=== PATIENT | female | born 1965 | race Caucasian/White ===

== ENCOUNTER 2016-08-08 21:17 | Emergency (ER) | payer OTHER ==
[~2016-08-08] VITALS: Ht 172.7 cm; Wt 69.5 kg
[~2016-08-08 21:17] MED LIST: ALPR-411 PO; CLX40 PO; OXYC7.5T78 PO; WLLSR/150 PO
[2016-08-08 21:19] VITALS: BP 121/69; PULSE 87; TEMP 36.7; O2SAT 98; Ht 172.7 cm; Wt 69.5 kg
[2016-08-08] MEDS ORDERED: CHN/1 PO (22:07)
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
== END 2016-08-08 23:00 | disposition home or self-care (01) ==
LOC: C.EDB 21:18 → C.EDD 23:00
DX: S13.4XXA Sprain of ligaments of cervical spine, initial encounter (principal); V43.52XA Car driver injured in collision with other type car in traffic accident, initial encounter; Z79.899 Other long term (current) drug therapy; Y92.488 Other paved roadways as the place of occurrence of the external cause; F17.210 Nicotine dependence, cigarettes, uncomplicated

== ENCOUNTER 2016-12-14 18:46 | Emergency (ER) | payer OTHER ==
[~2016-12-14] VITALS: Ht 172.7 cm; Wt 70.6 kg
[~2016-12-14 18:46] MED LIST changes: +CHN/1 PO; -OXYC7.5T78 PO
[2016-12-14 18:50] VITALS: TEMP 36.9; Ht 172.7 cm; Wt 70.6 kg
[2016-12-14] MEDS ORDERED: AMOXICILLIN/CLAVULANATE TAB 875 MG TAB PO STA (19:44)
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
[2016-12-14] MEDS ORDERED: DIPHTHERIA/TETANUS/PERTUSSIS 0.5 ML SYR/VIAL IM. ONE (19:45)
[2016-12-14] MEDS ORDERED: AMOX875T PO (20:15)
[2016-12-14 20:21] VITALS: BP 122/71; PULSE 68; O2SAT 98
== END 2016-12-14 20:21 | disposition home or self-care (01) ==
LOC: C.EDB 18:47 → C.EDD 20:21
DX: S41.151A Open bite of right upper arm, initial encounter (principal); S61.052A Open bite of left thumb without damage to nail, initial encounter; Z77.21 Contact with and (suspected) exposure to potentially hazardous body fluids; Z23 Encounter for immunization; F32.9 Major depressive disorder, single episode, unspecified; F41.9 Anxiety disorder, unspecified; Z79.899 Other long term (current) drug therapy; W50.3XXA Accidental bite by another person, initial encounter; Y93.F9 Activity, other caregiving; Y99.0 Civilian activity done for income or pay

== ENCOUNTER 2024-05-28 15:52 | Inpatient (IN) ==
[2024-05-28 16:23] LABS: Basophils # (auto) 0.04 K/uL (0.00-0.20); Basophils % (auto) 0.6 %; Eosinophils # (auto) 0.04 K/uL (0.00-0.50); Eosinophils % (auto) 0.6 %; Hematocrit (blood only) 35.2 % (37.0-47.0); Hemoglobin 11.8 g/dl (12.0-16.0); Immature Granulocytes # (auto) 0.02 K/uL (0.01-0.20); Immature Granulocytes % (auto) 0.3 %; Lymphocytes # (auto) 1.61 K/uL (1.20-3.40); Lymphocytes % (auto) 25.4 %; Mean Corpuscular Hemoglobin 29.7 pg (25.0-34.0); Mean Corpuscular Hgb Conc 33.5 g/dL (32.0-36.0); Mean Corpuscular Volume 88.7 fL (80.0-100.0); Mean Platelet Volume 10.9 fL (9.4-12.4); Monocytes # (auto) 0.46 K/uL (0.11-0.59); Monocytes % (auto) 7.3 %; Neutrophils # (auto) 4.17 K/uL (1.40-6.50); Neutrophils % (auto) 65.8 %; Platelet Count 212 K/uL (130-400); RDW Coefficient of Variation 11.9 % (11.5-14.5); RDW Standard Deviation 38.5 fL (36.4-46.3); Red Blood Count 3.97 M/uL (4.20-5.40); White Blood Count 6.34 K/ul (4.8-10.8)
--- NOTE | 2024-05-28 16:32 | Electrocardiogram Report ---
Test Reason : Blood Pressure : */* mmHG Vent. Rate : 72 BPM Atrial Rate : 72 BPM P-R Int : 110 ms QRS Dur : 74 ms QT Int : 398 ms P-R-T Axes : 0 52 26 degrees QTcB Int : 435 ms Sinus rhythm with short LA Diffuse Minor Nonspecific T wave abnormality Abnormal ECG When compared with ECG of 30-Nov-2013 15:54, No significant change Confirmed by Shai Escobar ([id number]) on 05/28/2024 4:31:59 PM Referred By: Confirmed By: Shai Escobar
[2024-05-28 16:40] LABS: Albumin Globulin Ratio 1.9 (0.9-2); Albumin Level 3.9 gm/dl (3.4-5.0); Bilirubin,Total 0.7 mg/dl (0.2-1.0); Calcium 8.7 mg/dl (8.6-10.3); Creatinine Clr Calc Pharmacy 82.9 ml/min; Globulin 2.1 gm/dl (2.5-4.0); Potassium 3.7 mmol/L (3.5-5.1)
[2024-05-28 16:46] LABS: Acetaminophen 5 ug/ml (10-30); Salicylate < 3.0 mg/dl (3.0-30)
[2024-05-28 16:54] LABS: Thyroid Stimulating Hormone 1.211 uIu/ml (0.300-4.500)
[2024-05-28 17:24] LABS: Appearance Urine Clear (Clear); Bilirubin Urine Negative (Negative); Blood Urine Negative (Negative); Color Urine Yellow; Glucose Urine UA Negative (Negative); Ketones Urine Negative (Negative); Leukocyte Esterase Urine Negative (Negative); Nitrite Urine Negative (Negative); Protein Urine Negative (Negative); Specific Gravity Urine 1.007 (1.000-1.030); Urobilinogen Urine Negative (Negative); pH Urine 5.5 (4.5-7.5)
[2024-05-28 18:14] LABS: Amphetamines+Metham, Urine Neg (Neg); Barbiturates, Urine Neg (Neg); Benzodiazepine, Urine Pos (Neg); Cocaine, Urine Neg (Neg); Fentanyl, Urine Neg (Neg); MDMA (Ecstacy), Urine Pos (Neg); Marijuana, Urine Neg (Neg); Methadone, Urine Neg (Neg); Opiate, Urine Neg (Neg); Phencyclidine, Urine Neg (Neg)
--- NOTE | 2024-05-28 21:57 | History & Physical Report ---
Date of Service May 28, 2024 Assessment & Plan (1) Suicide attempt by multiple drug overdose: (2) Depression with anxiety: (3) GERD (gastroesophageal reflux disease): (4) Hyperlipidemia: Plan 58yo female with depression/anxiety presenting with intentional overdose with multiple medications. Ingestion occurred between 14:00 and 15:15 today - ingestion as above with Ambien, Welbutrin, Rizatriptan, Bupropion and Alprazolam. Patient is somnolent but opens eyes to verbal stimuli. Protecting her airway. VSS. Electrolytes and labs are unremarkable. EKG with normal intervals. 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 History obtained through chart review and discussion with ER attending - patient unable to answer questions at time of admission, no family at bedside. Patient presenting with intentional overdose, suicide attempt that occurred between 14:00 and 15:30. She took 43 tablets of Xanax 0.25mg, 10 tablets of Rizatriptan 10mg, 15-30 tablets of Ambien 5mg and an unknown amount of Bupropion. She was found by her in bed, minimally responsive with a suicide note. In the ER patient afebrile, HD stable. Poison Control contacted and recommended continued monitoring ER Course: No therapies given Allergies Allergy/AdvReac Type Severity Reaction Status Date / Time bee venom protein (honey bee) Allergy Severe Anaphylaxis Verified 05/07/24 15:07 No Known Drug Allergies Allergy Verified 05/07/24 15:07 Home Medications Medication Instructions Recorded Confirmed Type rosuvastatin 10 mg tablet 10 mg PO QAM 05/29/23 05/28/24 History bupropion HCl 150 mg 24 hr tablet, 150 mg PO QAM #90 tabs 08/27/23 05/28/24 Rx extended release (Wellbutrin XL) tizanidine 2 mg capsule 2 mg PO Q8H PRN muscle spasticity 08/27/23 05/28/24 Rx #30 caps progesterone micronized 100 mg 100 mg PO HS 90 days #90 caps 09/25/23 05/28/24 Rx capsule buspirone 10 mg tablet 10 mg PO TID #270 tabs 11/29/23 05/28/24 Rx cholecalciferol (vitamin D3) 25 25 mcg PO QAM 02/07/24 05/28/24 History mcg (1,000 unit) tablet (Vitamin D3) coffee extract 100 mg-phosphatidyl 1 cap PO QAM 02/07/24 05/28/24 History serine 100 mg capsule (Neuriva Original) omeprazole 20 mg capsule,delayed 20 mg PO QAM 02/07/24 05/28/24 History release zolpidem 5 mg tablet 5 mg PO HS PRN Sleep #30 tabs 03/06/24 05/28/24 Rx triamcinolone acetonide 0.1 % 1 applic topical BID #15 grams 03/20/24 05/28/24 Rx topical ointment rizatriptan 10 mg tablet (Maxalt) See Rx Instructions PO .COMPLEX 05/07/24 05/28/24 Rx #10 tabs alprazolam 0.25 mg tablet 0.25 - 0.5 mg PO DAILY PRN anxiety 05/28/24 05/28/24 History citalopram 40 mg tablet 40 mg PO DAILY 05/28/24 05/28/24 History estradiol 0.0375 mg/24 hr weekly 1 patch transdermal WK 05/28/24 05/28/24 History transdermal patch Past Med/Surg History Problem List Suicide attempt by multiple drug overdose (Acute) Vasomotor symptoms due to menopause (Chronic) Chronic venous insufficiency (Chronic) Dyshidrotic eczema (Chronic) Gastroesophageal reflux disease (Chronic) Vitamin D deficiency (Chronic) Hyperlipidemia (Chronic) Depression with anxiety (Chronic) Medical History History of COVID-19 11/2023--fever, severe fatigue, cough--all resolved Vitamin D deficiency Hyperlipidemia GERD (gastroesophageal reflux disease) Depression with anxiety Chronic venous insufficiency Endometriosis Surgical History [place] teeth extracted History of colonoscopy History of ankle surgery ankle fracture> left S/P ablation operation for arrhythmia for SVT > 2008 H/O laparoscopy for endometriosis History of mandibular surgery S/P dilation and curettage Family History Aunt Breast cancer paternal aunt Mother Colorectal cancer Uterine cancer Grandmother (Maternal) Colorectal cancer Other No family history of adverse response to anesthesia Social History Smoking Status: Current every day smoker Tobacco Type: Cigarettes Age Started Using Tobacco: 31; packs per day: 0.5; Cigarettes Per Day: 6 a day (advised on policy); Second Hand Exposure: Yes; Do You Dip or Chew Tobacco: No; Hx Alcohol Use: Yes Alcohol type: wine Hx Substance Use: Yes Last Used Substance: Just Prior to Arrival Preferred Language: Ch[place] Communication Ability: Effective Visual Impairment: No Limitations Hearing Ability: Normal Fire Ranger Required: No Beliefs That Will Affect Care: None marital status: Current Living Situation: Spouse current occupational status: employed Other Information That Helps Us Care for You: No Feels Safe at Home: Yes Safety Concerns: Feels Safe At This Time Childhood Exposure to Second-Hand Smoke: Yes Diet: regular caffeine: Yes during the past year weight has: remained stable Dental Care, Regularly: Yes Physical Activity Frequency: 3-4 Times per Week Seatbelt Use: always Sunscreen Use: Yes Assistive Devices: Glasses Review of Systems Review of Systems: All systems reviewed & are unremarkable except as noted in HPI & below Physical Exam Physical Exam: General: Patient somnolent, minimally arousable, following simple commands and answers "yes and no" to questioning Skin: warm, dry, intact, no rashes or lesions HEENT: NC/AT, PERRL, anicteric sclera, conjunctiva without injection, external ear normal to inspection and nontender, nares patent, dry mucus membranes, dentition intact, no oropharyngeal lesions, neck supple, trachea midline, no LAD, no thyromegaly, no JVD Heart: +S1/S2, regular, tachycardic, no m/r/g Lungs: equal air entry bilaterally, no rales/rhonchi/wheezes Abd: +BS, soft, NT/ND, no masses/organomegaly/ascites Ext: warm, 2+ pulses in UE/LE bilaterally, no clubbing/cyanosis or edema. [place] catheter in place with clear, yellow urine in bag Neuro: somnolent, opens eyes to voice, answers some questions "yes and no" only, has episodes of minimal responsiveness with staring. Withdraws 4 extremities from pain Results & Data Results & Data Vital Signs (Past 12 Hours) Vital Signs Temp Pulse Resp BP Pulse Ox O2 Del Method 05/28/24 20:34 76 05/28/24 19:30 73 16 107/73 96 Room Air 05/28/24 19:09 72 15 96 Room Air 05/28/24 18:30 70 16 104/70 95 Room Air 05/28/24 18:00 70 16 106/69 95 Room Air 05/28/24 17:30 69 16 99/69 L 95 Room Air 05/28/24 17:15 68 16 97/70 L 95 Room Air 05/28/24 17:00 99/74 L 05/28/24 16:33 72 17 106/71 94 05/28/24 16:30 70 10 L 104/60 91 05/28/24 16:30 104/60 05/28/24 16:30 104/60 05/28/24 16:26 68 05/28/24 16:15 68 17 104/60 95 05/28/24 16:12 68 24 95 05/28/24 15:46 Room Air 05/28/24 15:46 36.4 C L 76 17 102/69 96 Room Air Laboratory Results Laboratory Results WBC 6.34 K/ul (4.8-10.8) 05/28/24 16:07 RBC 3.97 M/uL (4.20-5.40) L 05/28/24 16:07 Hgb 11.8 g/dl (12.0-16.0) L 05/28/24 16:07 Hct 35.2 % (37.0-47.0) L 05/28/24 16:07 MCV 88.7 fL (80.0-100.0) 05/28/24 16:07 MCH 29.7 pg (25.0-34.0) 05/28/24 16:07 MCHC 33.5 g/dL (32.0-36.0) 05/28/24 16:07 RDW Std Deviation 38.5 fL (36.4-46.3) 05/28/24 16:07 RDW Coeff of Courtney 11.9 % (11.5-14.5) 05/28/24 16:07 Plt Count 212 K/uL (130-400) 05/28/24 16:07 MPV 10.9 fL (9.4-12.4) 05/28/24 16:07 Immature Gran % (Auto) 0.3 % 05/28/24 16:07 Neut % (Auto) 65.8 % 05/28/24 16:07 Lymph % (Auto) 25.4 % 05/28/24 16:07 Wolfe % (Auto) 7.3 % 05/28/24 16:07 Eos % (Auto) 0.6 % 05/28/24 16:07 Baso % (Auto) 0.6 % 05/28/24 16:07 Neut # (Auto) 4.17 K/uL (1.40-6.50) 05/28/24 16:07 Lymph # (Auto) 1.61 K/uL (1.20-3.40) 05/28/24 16:07 Wolfe # (Auto) 0.46 K/uL (0.11-0.59) 05/28/24 16:07 Eos # (Auto) 0.04 K/uL (0.00-0.50) 05/28/24 16:07 Baso # (Auto) 0.04 K/uL (0.00-0.20) 05/28/24 16:07 Immature Gran # (Auto) 0.02 K/uL (0.01-0.20) 05/28/24 16:07 Sodium 142 mmol/L (136-145) 05/28/24 16:07 Potassium 3.7 mmol/L (3.5-5.1) 05/28/24 16:07 Chloride 111 mmol/L (98-107) H 05/28/24 16:07 Carbon Dioxide 25 mmol/L (21-32) 05/28/24 16:07 Anion Gap 6 (3-11) 05/28/24 16:07 BUN 12 mg/dl (6-23) 05/28/24 16:07 Creatinine 0.86 mg/dl (0.6-1.2) 05/28/24 16:07 Est Cr Clr Drug Dosing 82.9 ml/min 05/28/24 16:07 eGFR 78.75 05/28/24 16:07 BUN/Creatinine Ratio 14.0 (10-20) 05/28/24 16:07 Glucose 83 mg/dl (70-99(Fasting)) 05/28/24 16:07 POC Glucose 91 mg/dl (70-99) 05/28/24 16:05 Calcium 8.7 mg/dl (8.6-10.3) 05/28/24 16:07 Total Bilirubin 0.7 mg/dl (0.2-1.0) 05/28/24 16:07 AST 11 U/L (13-39) L 05/28/24 16:07 ALT 8 U/L (7-52) 05/28/24 16:07 Alkaline Phosphatase 64 U/L (34-104) 05/28/24 16:07 Total Creatine Kinase 46 U/L (26-192) 05/28/24 16:07 Total Protein 6.0 gm/dl (6.0-8.3) 05/28/24 16:07 Albumin 3.9 gm/dl (3.4-5.0) 05/28/24 16:07 Globulin 2.1 gm/dl (2.5-4.0) L 05/28/24 16:07 Albumin/Globulin Ratio 1.9 (0.9-2) 05/28/24 16:07 TSH 1.211 uIu/ml (0.300-4.500) 05/28/24 16:07 Urine Color Yellow 05/28/24 17:06 Urine Appearance Clear (Clear) 05/28/24 17:06 Urine pH 5.5 (4.5-7.5) 05/28/24 17:06 Ur Specific [place] 1.007 (1.000-1.030) 05/28/24 17:06 Urine Protein Negative (Negative) 05/28/24 17:06 Urine Glucose (UA) Negative (Negative) 05/28/24 17:06 Urine Ketones Negative (Negative) 05/28/24 17:06 Urine Blood Negative (Negative) 05/28/24 17:06 Urine Nitrite Negative (Negative) 05/28/24 17:06 Urine Bilirubin Negative (Negative) 05/28/24 17:06 Urine Urobilinogen Negative (Negative) 05/28/24 17:06 Ur Leukocyte Esterase Negative (Negative) 05/28/24 17:06 POC Ur Test NEG (NEG) 05/28/24 16:01 Salicylates < 3.0 mg/dl (3.0-30) L 05/28/24 16:07 Urine Opiates Screen Neg (Neg) 05/28/24 17:06 Ur Methadone, Qual Neg (Neg) 05/28/24 17:06 Urine Fentanyl Screen Neg (Neg) 05/28/24 17:06 Acetaminophen < 3 ug/ml (10-30) L 05/28/24 20:28 Urine Barbiturates Neg (Neg) 05/28/24 17:06 Ur Phencyclidine (PCP) Neg (Neg) 05/28/24 17:06 U Amphetamin/Meth Scrn Neg (Neg) 05/28/24 17:06 MDMA (Ecstasy) Screen Pos (Neg) H 05/28/24 17:06 U Benzodiazepines Scrn Pos (Neg) H 05/28/24 17:06 Ur Cocaine Metabolite Neg (Neg) 05/28/24 17:06 U Marijuana (THC) Screen Neg (Neg) 05/28/24 17:06 Ethyl Alcohol mg/dL < 10.0 mg/dl (<10.0) 05/28/24 16:07 ECG Additional Comments: DICTATED BY: Shai Escobar MD Test Reason : Blood Pressure : */* mmHG Vent. Rate : 72 BPM Atrial Rate : 72 BPM P-R Int : 110 ms QRS Dur : 74 ms QT Int : 398 ms P-R-T Axes : 0 52 26 degrees QTcB Int : 435 ms Sinus rhythm with short [place] Diffuse Minor Nonspecific T wave abnormality Abnormal ECG When compared with ECG of 30-Nov-2013 15:54, No significant change Confirmed by Shai Escobar ([id number]) on 05/28/2024 4:31:59 PM Referred By: Confirmed By: Shai Escobar Signed By: 05/28/24 1632 Dictated: 05/28/24 1600 Transcribed: Jump Roll Operator: The status of this report is Signed. Draft = Not yet reviewed or approved by Medical Physician. Signed = Reviewed and approved by Medical Physician. Code Status & VTE Plan VTE Prophylaxis Plan VTE Prophylaxis will be ordered: Yes PG Care Time/CCT Total # of Minutes Spent Total Time Spent with Patient: Total time spent is greater than 50% in coordination of care (as documented) at patient's floor/unit and/or counseling patient: Coding Level of Care Code 13566 INT INP/OBS CARE MIN Diagnoses Suicide attempt by multiple drug overdose T50.912A Encounter type: initial encounter Depression with anxiety F41.8 GERD (gastroesophageal reflux disease) K21.9 Hyperlipidemia E78.5 (1) Suicide attempt by multiple drug overdose Encounter type: initial encounter Qualified Code(s): T50.912A - Poisoning by multiple unspecified drugs, medicaments and biological substances, intentional self-harm, initial encounter
--- NOTE | 2024-05-28 22:13 | Emergency Department Note ---
History of Present Illness General Chief complaint: Overdose (Intentional) Stated complaint: OVERDOSE Time Seen by Provider: 05/28/24 16:00 Source: family () and EMS History of Present Illness Provider complaint: Overdose 58-year-old female presents emergency department for overdose. EMS reports that the patient took approximately 43 tablets of her 0.25 mg Xanax, 10 tablets of her 10 mg rizatriptan, 15 to 30 tablets of her 5 mg Ambien, and an unknown amount of bupropion under 50 mg. The bupropion was filled on February 23, 2024 for 90 tablets and is unclear if she took any or all of them. reports that the patient ingested these tablets between 2 and 3:15 PM. Patient's states he left the house at 2 PM and came back at 3:15 PM and found a suicide note in the patient's sleeping and minimally responsive in her bed. EMS reports that the patient is lethargic but does respond to noxious stimuli. No reported falls or trauma by EMS or the . Home Medications Medication Instructions Recorded Confirmed Type rosuvastatin 10 mg tablet 10 mg PO QAM 05/29/23 05/28/24 History bupropion HCl 150 mg 24 hr tablet, 150 mg PO QAM #90 tabs 08/27/23 05/28/24 Rx extended release (Wellbutrin XL) tizanidine 2 mg capsule 2 mg PO Q8H PRN muscle spasticity 08/27/23 05/28/24 Rx #30 caps progesterone micronized 100 mg 100 mg PO HS 90 days #90 caps 09/25/23 05/28/24 Rx capsule buspirone 10 mg tablet 10 mg PO TID #270 tabs 11/29/23 05/28/24 Rx cholecalciferol (vitamin D3) 25 25 mcg PO QAM 02/07/24 05/28/24 History mcg (1,000 unit) tablet (Vitamin D3) coffee extract 100 mg-phosphatidyl 1 cap PO QAM 02/07/24 05/28/24 History serine 100 mg capsule (Neuriva Original) omeprazole 20 mg capsule,delayed 20 mg PO QAM 02/07/24 05/28/24 History release zolpidem 5 mg tablet 5 mg PO HS PRN Sleep #30 tabs 03/06/24 05/28/24 Rx triamcinolone acetonide 0.1 % 1 applic topical BID #15 grams 03/20/24 05/28/24 Rx topical ointment rizatriptan 10 mg tablet (Maxalt) See Rx Instructions PO .COMPLEX 05/07/24 05/28/24 Rx #10 tabs alprazolam 0.25 mg tablet 0.25 - 0.5 mg PO DAILY PRN anxiety 05/28/24 05/28/24 History citalopram 40 mg tablet 40 mg PO DAILY 05/28/24 05/28/24 History estradiol 0.0375 mg/24 hr weekly 1 patch transdermal WK 05/28/24 05/28/24 History transdermal patch Allergies Allergy/AdvReac Type Severity Reaction Status Date / Time bee venom protein (honey bee) Allergy Severe Anaphylaxis Verified 05/07/24 15:07 No Known Drug Allergies Allergy Verified 05/07/24 15:07 Past Med/Surg History Problem List (Updated 05/28/24 @ 22:12 by Rich Mccormick MD) Suicide attempt by multiple drug overdose (Acute) Vasomotor symptoms due to menopause (Chronic) Chronic venous insufficiency (Chronic) Dyshidrotic eczema (Chronic) Gastroesophageal reflux disease (Chronic) Vitamin D deficiency (Chronic) Hyperlipidemia (Chronic) Depression with anxiety (Chronic) Medical History History of COVID-19 11/2023--fever, severe fatigue, cough--all resolved Vitamin D deficiency Hyperlipidemia GERD (gastroesophageal reflux disease) Depression with anxiety Chronic venous insufficiency Endometriosis Surgical History Trilla teeth extracted History of colonoscopy History of ankle surgery ankle fracture> left S/P ablation operation for arrhythmia for SVT > 2008 H/O laparoscopy for endometriosis History of mandibular surgery S/P dilation and curettage Family History Aunt Breast cancer paternal aunt Mother Colorectal cancer Uterine cancer Grandmother (Maternal) Colorectal cancer Other No family history of adverse response to anesthesia Social History Smoking Status: Unknown if ever smoked Tobacco Type: Cigarettes Age Started Using Tobacco: 31; packs per day: 0.5; Cigarettes Per Day: 6 a day (advised on policy); Second Hand Exposure: Yes; Do You Dip or Chew Tobacco: No; Hx Alcohol Use: Yes Alcohol type: wine Hx Substance Use: No Preferred Language: Romanian Communication Ability: Effective Visual Impairment: No Limitations Hearing Ability: Normal Roadmaster Required: No Beliefs That Will Affect Care: None marital status: Current Living Situation: Spouse current occupational status: employed Feels Safe at Home: Declines to Answer Childhood Exposure to Second-Hand Smoke: Yes Diet: regular caffeine: Yes during the past year weight has: remained stable Dental Care, Regularly: Yes Physical Activity Frequency: 3-4 Times per Week Seatbelt Use: always Sunscreen Use: Yes Assistive Devices: Glasses Physical Exam Vital Signs Vital Signs - 24 hr 05/28/24 15:46 05/28/24 15:46 05/28/24 16:12 Temperature 36.4 C L Temperature Source Oral Pulse Rate 76 68 Pulse Rate from SpO2 Sensor 68 Respiratory Rate 17 24 Blood Pressure 102/69 Blood Pressure Mean 80 Pulse Oximetry 96 95 Oxygen Delivery Method Room Air Room Air Sepsis Recent Fever Within 48 Hours No Sepsis New/Unexplained Change in Mental Status No Sepsis Action Taken by Nursing No Action Required 05/28/24 16:15 05/28/24 16:26 05/28/24 16:30 Temperature Temperature Source Pulse Rate 68 68 Pulse Rate from SpO2 Sensor 68 Respiratory Rate 17 Blood Pressure 104/60 104/60 Blood Pressure Mean 74 74 Pulse Oximetry 95 Oxygen Delivery Method Sepsis Recent Fever Within 48 Hours Sepsis New/Unexplained Change in Mental Status Sepsis Action Taken by Nursing 05/28/24 16:30 05/28/24 16:30 05/28/24 16:33 Temperature Temperature Source Pulse Rate 70 72 Pulse Rate from SpO2 Sensor 73 72 Respiratory Rate 10 L 17 Blood Pressure 104/60 104/60 106/71 Blood Pressure Mean 74 74 82 Pulse Oximetry 91 94 Oxygen Delivery Method Sepsis Recent Fever Within 48 Hours Sepsis New/Unexplained Change in Mental Status Sepsis Action Taken by Nursing 05/28/24 17:00 05/28/24 17:15 05/28/24 17:30 Temperature Temperature Source Pulse Rate 68 69 Pulse Rate from SpO2 Sensor 69 Respiratory Rate 16 16 Blood Pressure 99/74 L 97/70 L 99/69 L Blood Pressure Mean 80 77 79 Pulse Oximetry 95 95 Oxygen Delivery Method Room Air Room Air Sepsis Recent Fever Within 48 Hours Sepsis New/Unexplained Change in Mental Status Sepsis Action Taken by Nursing 05/28/24 18:00 05/28/24 18:30 05/28/24 19:09 Temperature Temperature Source Pulse Rate 70 70 72 Pulse Rate from SpO2 Sensor 69 72 Respiratory Rate 16 16 15 Blood Pressure 106/69 104/70 Blood Pressure Mean 82 81 Pulse Oximetry 95 95 96 Oxygen Delivery Method Room Air Room Air Room Air Sepsis Recent Fever Within 48 Hours Sepsis New/Unexplained Change in Mental Status Sepsis Action Taken by Nursing 05/28/24 19:30 05/28/24 20:34 Temperature Temperature Source Pulse Rate 73 76 Pulse Rate from SpO2 Sensor Respiratory Rate 16 Blood Pressure 107/73 Blood Pressure Mean 87 Pulse Oximetry 96 Oxygen Delivery Method Room Air Sepsis Recent Fever Within 48 Hours Sepsis New/Unexplained Change in Mental Status Sepsis Action Taken by Nursing Physical Exam GENERAL: Patient is somnolent however when spoken to loudly she does respond and speak in appropriate sentences. HENT: Exam performed. - Head: Normocephalic and atraumatic. EYES: Conjunctivae and EOM are normal. Right eye exhibits no discharge. Left eye exhibits no discharge. No scleral icterus. NECK: Normal range of motion. Neck supple. No JVD present. CV: Normal rate, regular rhythm, normal heart sounds and intact distal pulses. There is no peripheral edema. Palpable radial pulses bue. PULM/CHEST: Effort normal and breath sounds normal. No respiratory distress. No stridor. no wheezes. no rales. ABD: The abdomen is soft. There is no tenderness. NEURO: Patient is somnolent however when spoken to loudly she does respond and speak in appropriate sentences. GCS: 12 (E:3, V:4, M:5) Course Course 1600: The patient was evaluated in room A1. A complete history and physical exam was performed Cardiac monitoring: An order was placed for continuous cardiac monitoring. The monitor shows a rate of 70 with sinus rhythm interpreted by in 1629: Spoke with poison control Reji. They recommend 24 hours of observation, EKGs every 6 hours, and watch for seizures and QTc prolongation. 1655: Vital signs stable. Patient's acetaminophen level came back at 5. Given the patient's polypharmacy overdose it is unclear if the patient might of taking other medications containing acetaminophen or acetaminophen itself. We discussed with poison control Reji and we decided to repeat her Tylenol at 2000 and determine if the patient's Tylenol level goes up and will need NAC. 2114: Vital signs stable. Repeat acetaminophen level less than 3. EKG stable. [facility] Medical Decision Making Laboratory Data Attestation: I reviewed the patient's lab results. 05/28/24 16:07 05/28/24 16:07 Lab Results 05/28/24 05/28/24 05/28/24 Range/Units 16:01 16:05 16:07 WBC 6.34 (4.8-10.8) K/ul RBC 3.97 L (4.20-5.40) M/uL Hgb 11.8 L (12.0-16.0) g/dl Hct 35.2 L (37.0-47.0) % MCV 88.7 (80.0-100.0) fL MCH 29.7 (25.0-34.0) pg MCHC 33.5 (32.0-36.0) g/dL RDW Std Deviation 38.5 (36.4-46.3) fL RDW Coeff of Courtney 11.9 (11.5-14.5) % Plt Count 212 (130-400) K/uL MPV 10.9 (9.4-12.4) fL Immature Gran % (Auto) 0.3 % Neut % (Auto) 65.8 % Lymph % (Auto) 25.4 % [place] % (Auto) 7.3 % Eos % (Auto) 0.6 % Baso % (Auto) 0.6 % Neut # (Auto) 4.17 (1.40-6.50) K/uL Lymph # (Auto) 1.61 (1.20-3.40) K/uL [place] # (Auto) 0.46 (0.11-0.59) K/uL Eos # (Auto) 0.04 (0.00-0.50) K/uL Baso # (Auto) 0.04 (0.00-0.20) K/uL Immature Gran # (Auto) 0.02 (0.01-0.20) K/uL Sodium 142 (136-145) mmol/L Potassium 3.7 (3.5-5.1) mmol/L Chloride 111 H (98-107) mmol/L Carbon Dioxide 25 (21-32) mmol/L Anion Gap 6 (3-11) BUN 12 (6-23) mg/dl Creatinine 0.86 (0.6-1.2) mg/dl Est Cr Clr Drug Dosing 82.9 ml/min eGFR 78.75 BUN/Creatinine Ratio 14.0 (10-20) Glucose 83 (70-99(Fasting)) mg/dl POC Glucose 91 (70-99) mg/dl Calcium 8.7 (8.6-10.3) mg/dl Total Bilirubin 0.7 (0.2-1.0) mg/dl AST 11 L (13-39) U/L ALT 8 (7-52) U/L Alkaline Phosphatase 64 (34-104) U/L Total Creatine Kinase 46 (26-192) U/L Total Protein 6.0 (6.0-8.3) gm/dl Albumin 3.9 (3.4-5.0) gm/dl Globulin 2.1 L (2.5-4.0) gm/dl Albumin/Globulin Ratio 1.9 (0.9-2) TSH 1.211 (0.300-4.500) uIu/ml Urine Color Urine Appearance (Clear) Urine pH (4.5-7.5) Ur Specific [place] (1.000-1.030) Urine Protein (Negative) Urine Glucose (UA) (Negative) Urine Ketones (Negative) Urine Blood (Negative) Urine Nitrite (Negative) Urine Bilirubin (Negative) Urine Urobilinogen (Negative) Ur Leukocyte Esterase (Negative) POC Ur Test NEG (NEG) Salicylates < 3.0 L (3.0-30) mg/dl Urine Opiates Screen (Neg) Ur Methadone, Qual (Neg) Urine Fentanyl Screen (Neg) Acetaminophen 5 L (10-30) ug/ml Urine Barbiturates (Neg) Ur Phencyclidine (PCP) (Neg) U Amphetamin/Meth Scrn (Neg) MDMA (Ecstasy) Screen (Neg) U Benzodiazepines Scrn (Neg) Ur Cocaine Metabolite (Neg) U Marijuana (THC) Screen (Neg) Ethyl Alcohol mg/dL < 10.0 (<10.0) mg/dl 05/28/24 05/28/24 Range/Units 17:06 20:28 WBC (4.8-10.8) K/ul RBC (4.20-5.40) M/uL Hgb (12.0-16.0) g/dl Hct (37.0-47.0) % MCV (80.0-100.0) fL MCH (25.0-34.0) pg MCHC (32.0-36.0) g/dL RDW Std Deviation (36.4-46.3) fL RDW Coeff of [place]ney (11.5-14.5) % Plt Count (130-400) K/uL MPV (9.4-12.4) fL Immature Gran % (Auto) % Neut % (Auto) % Lymph % (Auto) % [place] % (Auto) % Eos % (Auto) % Baso % (Auto) % Neut # (Auto) (1.40-6.50) K/uL Lymph # (Auto) (1.20-3.40) K/uL [place] # (Auto) (0.11-0.59) K/uL Eos # (Auto) (0.00-0.50) K/uL Baso # (Auto) (0.00-0.20) K/uL Immature Gran # (Auto) (0.01-0.20) K/uL Sodium (136-145) mmol/L Potassium (3.5-5.1) mmol/L Chloride (98-107) mmol/L Carbon Dioxide (21-32) mmol/L Anion Gap (3-11) BUN (6-23) mg/dl Creatinine (0.6-1.2) mg/dl Est Cr Clr Drug Dosing ml/min eGFR BUN/Creatinine Ratio (10-20) Glucose (70-99(Fasting)) mg/dl POC Glucose (70-99) mg/dl Calcium (8.6-10.3) mg/dl Total Bilirubin (0.2-1.0) mg/dl AST (13-39) U/L ALT (7-52) U/L Alkaline Phosphatase (34-104) U/L Total Creatine Kinase (26-192) U/L Total Protein (6.0-8.3) gm/dl Albumin (3.4-5.0) gm/dl Globulin (2.5-4.0) gm/dl Albumin/Globulin Ratio (0.9-2) TSH (0.300-4.500) uIu/ml Urine Color Yellow Urine Appearance Clear (Clear) Urine pH 5.5 (4.5-7.5) Ur Specific [place] 1.007 (1.000-1.030) Urine Protein Negative (Negative) Urine Glucose (UA) Negative (Negative) Urine Ketones Negative (Negative) Urine Blood Negative (Negative) Urine Nitrite Negative (Negative) Urine Bilirubin Negative (Negative) Urine Urobilinogen Negative (Negative) Ur Leukocyte Esterase Negative (Negative) POC Ur Test (NEG) Salicylates (3.0-30) mg/dl Urine Opiates Screen Neg (Neg) Ur Methadone, Qual Neg (Neg) Urine Fentanyl Screen Neg (Neg) Acetaminophen < 3 L (10-30) ug/ml Urine Barbiturates Neg (Neg) Ur Phencyclidine (PCP) Neg (Neg) U Amphetamin/Meth Scrn Neg (Neg) MDMA (Ecstasy) Screen Pos H (Neg) U Benzodiazepines Scrn Pos H (Neg) Ur Cocaine Metabolite Neg (Neg) U Marijuana (THC) Screen Neg (Neg) Ethyl Alcohol mg/dL (<10.0) mg/dl ECG Data Attestation: I personally reviewed and interpreted this ECG as follows: Additional Comments: EKG #1 at 1599: Sinus rhythm with rate of 72. [place] 110 QRS [address] elevation or ST depression EKG #2 at 2033: Sinus rhythm with rate of 76. [place] 114 QRS [address] elevation or ST depression MDM Narrative 1600: The patient was evaluated in room A1. A complete history and physical exam was performed Cardiac monitoring: An order was placed for continuous cardiac monitoring. The monitor shows a rate of 70 with sinus rhythm interpreted by in 1629: Spoke with poison control Reji. They recommend 24 hours of observation, EKGs every 6 hours, and watch for seizures and QTc prolongation. 1654: Vital signs stable. Patient's acetaminophen level came back at 5. Given the patient's polypharmacy overdose it is unclear if the patient might of taking other medications containing acetaminophen or acetaminophen itself. We discussed with poison control Reji and we decided to repeat her Tylenol at 1999 and determine if the patient's Tylenol level goes up and will need NAC. 2114: Vital signs stable. Repeat acetaminophen level less than 3. EKG stable. [facility] Impression & Plan Suicide attempt by multiple drug overdose Discharge Plan Visit Data Chief Complaint: Overdose (Intentional) Stated Complaint: OVERDOSE ED Provider: Rich Mccormick Discharge Problem: Suicide attempt by multiple drug overdose Patient Disposition: Admitted As Inpatient Forms Stand Alone Forms: My [facility], Suicide Prevention Resources Prescriptions Prescriptions: No Action progesterone micronized 100 mg capsule 100 mg PO HS 90 Days Qty: 90 3RF buspirone 10 mg tablet 10 mg PO TID Qty: 270 1RF zolpidem 5 mg tablet 5 mg PO HS PRN (Reason: Sleep) Qty: 30 0RF bupropion HCl [Wellbutrin XL] 150 mg tablet extended release 24 hr 150 mg PO QAM Qty: 90 3RF tizanidine 2 mg capsule 2 mg PO Q8H PRN (Reason: muscle spasticity) Qty: 30 0RF rosuvastatin 10 mg tablet 10 mg PO QAM triamcinolone acetonide 0.1 % ointment 1 applic topical BID Qty: 15 1RF rizatriptan [Maxalt] 10 mg tablet See Rx Instructions PO .COMPLEX Qty: 10 3RF Rx Instructions: take 1 tab at onset of headache; if no relief may repeat 1 tab after at least 2 hrs; max = 3 tabs/24 hr PO omeprazole 20 mg capsule,delayed release(DR/EC) 20 mg PO QAM cholecalciferol (vitamin D3) [Vitamin D3] 25 mcg (1,000 unit) Tablet 25 mcg PO QAM Neuriva Original 100-100 mg Capsule 1 cap PO QAM citalopram 40 mg tablet 40 mg PO DAILY alprazolam 0.25 mg tablet 0.25 - 0.5 mg PO DAILY PRN (Reason: anxiety) Rx Instructions: 1-2 tabs PO daily PRN; estradiol 0.0375 mg/24 hr patch weekly 1 patch transdermal WK Patient Comments: takes on tuesdays Rx Instructions: 1 patch transdermally once weekly; Referrals Referrals: Leti Molina MD [Primary Care Provider] - Discharge Problem: Suicide attempt by multiple drug overdose Qualifiers: Encounter type: initial encounter Qualified Code(s): T50.912A - Poisoning by multiple unspecified drugs, medicaments and biological substances, intentional self-harm, initial encounter
[2024-05-28] MEDS ORDERED: ONDANSETRON INJ 2 MG/ML 2 ML VIAL IV PRN (23:24)
[2024-05-28] MEDS: LACTATED RINGER'S 1,000 ML IV SCH (23:36)
[2024-05-29 06:31] LABS: Hematocrit (blood only) 35.5 % (37.0-47.0); Hemoglobin 11.9 g/dl (12.0-16.0); Mean Corpuscular Hemoglobin 30.1 pg (25.0-34.0); Mean Corpuscular Hgb Conc 33.5 g/dL (32.0-36.0); Mean Corpuscular Volume 89.6 fL (80.0-100.0); Platelet Count 214 K/uL (130-400); RDW Standard Deviation 39.4 fL (36.4-46.3); Red Blood Count 3.96 M/uL (4.20-5.40); White Blood Count 7.99 K/ul (4.8-10.8)
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
[2024-05-29 07:01] LABS: BUN Creatinine Ratio 15.9 (10-20); Calcium 9.3 mg/dl (8.6-10.3); Creatinine Clr Calc Pharmacy 79.1 ml/min; Potassium 3.7 mmol/L (3.5-5.1)
[2024-05-29] MEDS: PANTOprazole 40 MG TAB PO SCH (08:13)
--- NOTE | 2024-05-29 11:23 | Electrocardiogram Report ---
Test Reason : Blood Pressure : */* mmHG Vent. Rate : 100 BPM Atrial Rate : 108 BPM P-R Int : * ms QRS Dur : 80 ms QT Int : 536 ms P-R-T Axes : * 62 65 degrees QTcB Int : 691 ms Poor data quality, interpretation may be adversely affected Sinus tachycardia Diffuse Minor Nonspecific T wave abnormality Abnormal ECG When compared with ECG of 28-May-2024 20:34, HR has increased by 24 bpm Otherwise no significant change Confirmed by Shai Escobar ([id number]) on 05/29/2024 11:22:50 AM Referred By: REFERRED SELF Confirmed By: Shai Escobar
--- NOTE | 2024-05-29 13:13 | Psychiatric Consultation ---
Date of Consultation May 29, 2024 Impression / Recommendations Sita Her is a 58 yo woman admitted medically following an intentional overdose suicide attempt. Diagnostically consistent with MDD in the context of recent stressors including recent reprimand at work. Acute risk of self-harm remains elevated and high given suicide attempt requiring medical admission, major depressive symptoms, history of prior attempt, access to lethal means, hopelessness, unwillingness to seek treatment, limited insight,, high psychic distress and regretful that she is alive. Given elevated risk of harm to self they meet criteria for inpatient psychiatric care for diagnostic clarification, safety/stabilization, development of additional coping skills, medication management and disposition/safety planning once medically stable. If they do not agree to voluntary treatment at that time they will meet criteria for 302 status based on severity of suicide attempt and ongoing modifiable risk factors. Overall, I spent a total of 60 minutes with this case including review of chart records, review of labwork, review of EKG QTc, direct evaluation of the patient at bedside, counseling the patient, discussion of the patient with the Nurse and with the hospitalist provider, discussion with the psychiatric liason during clinical rounds, review of collateral historian information from the family and documentation in the electronic health record. (1) Suicide attempt by multiple drug overdose: Encounter type: initial encounter Qualified Code(s): T50.912A - Poisoning by multiple unspecified drugs, medicaments and biological substances, intentional self-harm, initial encounter (2) Depression with suicidal ideation: Plan -Continue 1-on-1 for high risk of harm to self -Do not discharge or allow to leave AMA, would meet 302 criteria, if tries to leave call security and psych liason -Hold psych medications for now given overdose and prolonged QTc -Once medically cleared plan for psychiatric hospitalization (either 201 or 302 status). Psych History Identifying Data Taina is a 58 yo woman with a history of depression, anxiety, GERD, HLD presenting following suicide attempt via polypharmacy overdose. Psychiatry consulted for "intentional overdose". Chief Complaint "If I'd just had the right stuff I'd have done it and be done". History of Present Illness Taina was seen and assessed following a suicide attempt via polypharmacy overdose of multiple medications including Wellbutrin, Ambien, Xanax, and Celexa in the context of stressors including financial difficulties, and a recent incident at work, which exacerbated pre-existing suicidal ideation and planning over the last 2 months. She denies taking any migraine medication. She expresses feeling very discouraged that the attempt did not result in and currently experiences persistent suicidal thoughts and regret at being alive. She reports feeling hopeless and she left a suicide note which notes her sense that her will be better off without her, that he deserved better and with self-guilt about her past shopping habits and financial concerns. She has a history of depression and a prior suicide attempt in 2013. The patient's most recent psychiatric hospitalization was in 2013 at the [facility] following her previous suicide attempt via overdose. There are guns in the home. Further recent history and information per psych liason note on 05/29/2024: "Met with pt for initial consult. Consulted for S/P polypharmacy overdose. When this nurse entered pt room, pt was tremulous and crying on the phone with her . Her eyes remained closed throughout interview. Pt stated she's been feeling suicidal for approximately one month. She stated she did not have a specific plan prior to yesterday. She stated that while her was gone she thought, "this is a perfect opportunity. He'll be gone for a while. I couldn't find a rope so I took as many things as I could." She stated she took Xanax, Ambien, Wellbutrin and Celexa. She denies taking Rizatriptan. She stated she ran out of her prescription for that. Today she continues to feel suicidal and she is quite upset that her suicide attempt was unsuccessful. She stated "I'm so upset it didn't work. I'm such a dingbat. I didn't do it right. I'm taking up a medical bed here while someone else can be here." Current stressors include finances and she was recently reprimanded at [employer] and feels she will lose her job there. She has been employed there for approximately 4 years. 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 She stated, "It's been a rough month. Once I was reprimanded, that just sealed the deal." She reports a previous SA in 2013 by overdose in which she was hospitalized at the [facility]. She is tearful throughout interview and remains hopeless. She denies any [facility] Discussed inpatient psychiatric treatment. She stated she is willing to sign herself in voluntarily once she is medically cleared." Allergies Allergy/AdvReac Type Severity Reaction Status Date / Time bee venom protein (honey bee) Allergy Severe Anaphylaxis Verified 05/07/24 15:07 No Known Drug Allergies Allergy Verified 05/07/24 15:07 Home Medications Medication Instructions Recorded Confirmed Type rosuvastatin 10 mg tablet 10 mg PO QAM 05/29/23 05/28/24 History bupropion HCl 150 mg 24 hr tablet, 150 mg PO QAM #90 tabs 08/27/23 05/28/24 Rx extended release (Wellbutrin XL) tizanidine 2 mg capsule 2 mg PO Q8H PRN muscle spasticity 08/27/23 05/28/24 Rx #30 caps progesterone micronized 100 mg 100 mg PO HS 90 days #90 caps 09/25/23 05/28/24 Rx capsule buspirone 10 mg tablet 10 mg PO TID #270 tabs 11/29/23 05/28/24 Rx cholecalciferol (vitamin D3) 25 25 mcg PO QAM 02/07/24 05/28/24 History mcg (1,000 unit) tablet (Vitamin D3) coffee extract 100 mg-phosphatidyl 1 cap PO QAM 02/07/24 05/28/24 History serine 100 mg capsule (Neuriva Original) omeprazole 20 mg capsule,delayed 20 mg PO QAM 02/07/24 05/28/24 History release zolpidem 5 mg tablet 5 mg PO HS PRN Sleep #30 tabs 03/06/24 05/28/24 Rx triamcinolone acetonide 0.1 % 1 applic topical BID #15 grams 03/20/24 05/28/24 Rx topical ointment rizatriptan 10 mg tablet (Maxalt) See Rx Instructions PO .COMPLEX 05/07/24 Rx #10 tabs alprazolam 0.25 mg tablet 0.25 - 0.5 mg PO DAILY PRN anxiety 05/28/24 05/28/24 History citalopram 40 mg tablet 40 mg PO DAILY 05/28/24 05/28/24 History estradiol 0.0375 mg/24 hr weekly 1 patch transdermal WK 05/28/24 05/28/24 History transdermal patch Patient History Medical History History of COVID-19 11/2023--fever, severe fatigue, cough--all resolved Vitamin D deficiency Hyperlipidemia GERD (gastroesophageal reflux disease) Depression with anxiety Chronic venous insufficiency Endometriosis Surgical History [place] teeth extracted History of colonoscopy History of ankle surgery ankle fracture> left S/P ablation operation for arrhythmia for SVT > 2008 H/O laparoscopy for endometriosis History of mandibular surgery S/P dilation and curettage Family History Aunt Breast cancer paternal aunt Mother Colorectal cancer Uterine cancer Grandmother (Maternal) Colorectal cancer Other No family history of adverse response to anesthesia Social History Smoking Status: Current every day smoker Tobacco Type: Cigarettes Age Started Using Tobacco: 31; packs per day: 0.5; Cigarettes Per Day: 6 a day (advised on policy); Second Hand Exposure: Yes; Do You Dip or Chew Tobacco: No; Hx Alcohol Use: Yes Alcohol type: wine Hx Substance Use: Yes Last Used Substance: Just Prior to Arrival Preferred Language: [place] Communication Ability: Effective Visual Impairment: No Limitations Hearing Ability: Normal Advertising Columnist Required: No Beliefs That Will Affect Care: None marital status: Current Living Situation: Spouse current occupational status: employed Other Information That Helps Us Care for You: No Feels Safe at Home: Yes Safety Concerns: Feels Safe At This Time Childhood Exposure to Second-Hand Smoke: Yes Diet: regular caffeine: Yes during the past year weight has: remained stable Dental Care, Regularly: Yes Physical Activity Frequency: 3-4 Times per Week Seatbelt Use: always Sunscreen Use: Yes Assistive Devices: None Physical Exam Psychiatric: Thought Content: + hopelessness and + worthlessness Suicidal Thoughts: denies suicidal plan (but s/p serious attempt); + reports suicidal thoughts Vital Signs (Past 24 Hours): Last Vital Signs Temp 36.7 C 05/29/24 10:54 Pulse 61 05/29/24 10:54 Resp 20 05/29/24 10:54 BP 112/69 05/29/24 10:54 Pulse Ox 96 05/29/24 10:54 O2 Del Method Room Air 05/29/24 10:54 Results & Data (PSY) Medications Administered Lactated Ringer's (Lr) 1,000 mls @ 80 mls/hr IV .[id number] RICHIE Stop: 05/30/24 00:23 Last Admin: 05/29/24 12:07 Dose: 80 mls/hr Documented By: Infusion: 05/29/24 12:06 Dose: Infused Documented By: Admin: 05/28/24 23:36 Dose: 80 mls/hr Documented By: BRANDI Pantoprazole Sodium (Pantoprazole 40 Mg Tab) 40 mg PO DAILY RICHIE Stop: 06/28/24 08:59 Last Admin: 05/29/24 08:13 Dose: 40 mg Documented By: DONTA Coding Level of Care Code 18108 IN/OBS CONSULT LVL 4,60M Diagnoses Suicide attempt by multiple drug overdose T50.912A Encounter type: initial encounter Depression with suicidal ideation F32.A; R45.851
[2024-05-29] MEDS: MAGNESIUM SULFATE / D5W 1 GM/100 ML BAG IV SCH (14:33)
--- NOTE | 2024-05-29 16:26 | Electrocardiogram Report ---
Test Reason : Blood Pressure : */* mmHG Vent. Rate : 76 BPM Atrial Rate : 76 BPM P-R Int : 114 ms QRS Dur : 80 ms QT Int : 410 ms P-R-T Axes : 64 67 81 degrees QTcB Int : 461 ms Normal sinus rhythm Diffuse Minor Nonspecific T wave abnormality Abnormal ECG When compared with ECG of 28-May-2024 16:00, No significant change was found Confirmed by Shai Escobar ([id number]) on 05/29/2024 4:26:13 PM Referred By: REFERRED SELF Confirmed By: Shai Escobar
--- NOTE | 2024-05-29 17:04 | Electrocardiogram Report ---
Test Reason : Blood Pressure : */* mmHG Vent. Rate : 88 BPM Atrial Rate : 88 BPM P-R Int : 112 ms QRS Dur : 84 ms QT Int : 446 ms P-R-T Axes : 56 61 43 degrees QTcB Int : 539 ms Poor data quality, interpretation may be adversely affected Normal sinus rhythm with sinus arrhythmia Diffuse Nonspecific T wave abnormality Abnormal ECG When compared with ECG of 29-May-2024 08:11, No significant change Confirmed by Shai Escobar ([id number]) on 05/29/2024 5:03:59 PM Referred By: REFERRED SELF Confirmed By: Shai Escobar
--- NOTE | 2024-05-29 23:25 | Billing Data ---
Date of Service May 29, 2024 Coding Level of Care Code 21921 SUB INP/OBS CARE MIN
--- NOTE | 2024-05-30 07:01 | Hospitalist Progress Note ---
Date of Service May 30, 2024 Assessment & Plan (1) Suicide attempt by multiple drug overdose: (2) Depression with anxiety: (3) GERD (gastroesophageal reflux disease): (4) Hyperlipidemia: Plan 58yo female with depression/anxiety presenting with intentional overdose with multiple medications including with Ambien, Wellbutrin, citalopram and Alprazolam. 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 - Alprazolam, Wellbutrin, Buspirone, Citalopram -Psychiatry consultation appreciated #Prolonged QTc - initially noted on presentation, now less than 500-> likely secondary to SSRI ingestion - consider repeating EKG prior to starting any QT prolonging medications #GERD - chronic, stable -Protonix 40mg po daily while inpatient #Hyperlipidemia -Continue Crestor Ppx - Low risk for DVT-> ambulation Code - Full Dispo - Medically stable for inpatient psych placement; -Do not discharge or allow to leave AMA, would meet 302 criteria Admission and Anticipated Discharge Date Admission Date: May 28, 2024 Supervising Physician Co-Signing Physician Notes During face to face encounter, I obtained a history of current complaints and a physical examination, discussed hospital stay with patient. I discussed plan of care with PGY3 Dr. Vinson. I reviewed above note and agree with it except for the following: Patient here with intentional overdose. Discussed with psych. Patient cannot sign out against medical advice. Patient is back to baseline regardining mentation and vital signs. Patient is medically cleared for discharge. will continue 1-1 observation. Vitals appear stable. Subjective Pt seen at bedside this morning. No events overnight. Complaining of headache, otherwise no complaints this morning. Review of Systems Review of Systems: As per above Physical Exam Physical Exam: Constitutional: well-appearing, no acute distress HEENT: NCAT, no conjunctival injection CV: regular rhythm, no murmur appreciated, extremities well-perfused, no LE edema Resp: CTABL, no wheezes/rales/rhonchi appreciated, no increased work of breathi ng MSK: no gross deformities appreciated Skin: warm, dry, no rash appreciated Neuro: alert, oriented, no focal neurologic deficit appreciated Results & Data Results & Data Vital Signs (Past 12 Hours) Vital Signs Temp Pulse Pulse Resp BP BP Pulse Ox 05/30/24 03:51 36.5 C 70 14 122/72 98 05/29/24 23:16 36.6 C 75 14 96/60 L 97 05/29/24 23:00 67 05/29/24 19:17 36.7 C 71 16 110/70 97 O2 Del Method 05/30/24 03:51 Room Air 05/29/24 23:16 Room Air 05/29/24 23:00 05/29/24 19:17 Room Air Resident Activity Tracking Resident Involvement: Resident Care Provided Care Provided: Adult Hospital Medicine (1) Suicide attempt by multiple drug overdose Encounter type: initial encounter Qualified Code(s): T50.912A - Poisoning by multiple unspecified drugs, medicaments and biological substances, intentional self-harm, initial encounter
[2024-05-30 07:26] LABS: Hematocrit (blood only) 35.2 % (37.0-47.0); Mean Corpuscular Hemoglobin 30.3 pg (25.0-34.0); Mean Corpuscular Hgb Conc 34.1 g/dL (32.0-36.0); Mean Corpuscular Volume 88.9 fL (80.0-100.0); Mean Platelet Volume 11.2 fL (9.4-12.4); Platelet Count 214 K/uL (130-400); RDW Coefficient of Variation 12.1 % (11.5-14.5); RDW Standard Deviation 39.4 fL (36.4-46.3); Red Blood Count 3.96 M/uL (4.20-5.40)
[2024-05-30 07:48] LABS: Albumin Globulin Ratio 1.9 (0.9-2); Albumin Level 3.9 gm/dl (3.4-5.0); BUN Creatinine Ratio 9.4 (10-20); Bilirubin,Total 0.6 mg/dl (0.2-1.0); Calcium 9.1 mg/dl (8.6-10.3); Creatinine Clr Calc Pharmacy 76.3 ml/min; Globulin 2.1 gm/dl (2.5-4.0); Magnesium 2.2 mg/dl (1.7-2.4); Potassium 3.8 mmol/L (3.5-5.1)
[2024-05-30] MEDS: ACETAMINOPHEN 325 MG TAB PO PRN (09:23)
--- NOTE | 2024-05-30 13:52 | Psychiatric Progress Note ---
Date of Service May 30, 2024 Impression / Recommendations Impression Taina is a 58 yo woman admitted medically following an intentional overdose suicide attempt. Diagnostically consistent with MDD in the context of recent stressors including recent reprimand at work. Acute risk of self-harm remains elevated and high given suicide attempt requiring medical admission, major depressive symptoms, history of prior attempt, access to lethal means, hopelessness, unwillingness to seek treatment, limited insight,, high psychic distress and regretful that she is alive. Given elevated risk of harm to self they meet criteria for inpatient psychiatric care for diagnostic clarification, safety/stabilization, development of additional coping skills, medication management and disposition/safety planning once medically stable. A: Patient presents as a high suicide risk and cannot contract for safety if discharged. Patient meets criteria for inpatient psychiatry admission and is agreeable. Psychiatry liaison completed 201 commitment paperwork and will conduct bed search. Overall, I spent a total of 30 minutes with this case including review of chart records, review of labwork, review of EKG QTc, direct evaluation of the patient at bedside, counseling the patient, discussion of the patient with the Nurse and with the hospitalist provider, discussion with the psychiatric liason during clinical rounds, review of collateral historian information from the family and documentation in the electronic health record. (1) Suicide attempt by multiple drug overdose: (2) Depression with suicidal ideation: Plan -Continue 1-on-1 for high risk of harm to self -Do not discharge or allow to leave AMA, would meet 302 criteria, if tries to leave call security and psych liaison -Hold psych medications for now given overdose and prolonged QTc -Continue plan for voluntary admission to inpatient psychiatry (201) Suicide Risk Level Suicide Risk Level: High-Imminent (1-on-1 observation) Interval History Identifying Information Taina is a 58 yo woman admitted medically following an intentional overdose suicide attempt. Chief Complaint Depression Subjective Subjective The pt reports feeling depressed and is tearful. Physically feels better however c/o continued negative thinking. C/o low energy and inability to concentration. Word finding difficulties during interview. Denies AVH. C/o on-going desire to and passive wish. When reflect on recent suicide attempt she reports "I didn't do it right" and appears disappointed. Agreeable to inpatient psychiat ry admission. Physical Exam Mental Examination Appearance: Disheveled Eye Contact: No Eye Contact Motor Behavior: Slowed and Tremulous Speech: Soft and Delayed Mood: Sad and Tearful Affect: Congruent, Sad and Withdrawn Thought Process: Intact and Linear Thought Content: Intact and Racing Hallucinations: None Insight: Poor (to limited) Judgement: Poor Vital Signs (Past 24 Hours) Last Vital Signs Temp 36.5 C 05/30/24 11:33 Pulse 74 05/30/24 11:33 Resp 20 05/30/24 11:33 BP 111/72 05/30/24 11:33 Pulse Ox 94 05/30/24 11:33 O2 Del Method Room Air 05/30/24 11:33 Results & Data ([facility]) Laboratory Results Laboratory Results - last 24 hr 05/30/24 06:44 WBC 7.30 RBC 3.96 L Hgb 12.0 Hct 35.2 L MCV 88.9 MCH 30.3 MCHC 34.1 RDW Std Deviation 39.4 RDW Coeff of Courtney 12.1 Plt Count 214 MPV 11.2 Sodium 142 Potassium 3.8 Chloride 110 H Carbon Dioxide 28 Anion Gap 4 BUN 8 Creatinine 0.85 Est Cr Clr Drug Dosing 76.3 eGFR 79.86 BUN/Creatinine Ratio 9.4 L Glucose 100 H Calcium 9.1 Magnesium 2.2 Total Bilirubin 0.6 AST 10 L ALT 7 Alkaline Phosphatase 61 Total Protein 6.0 Albumin 3.9 Globulin 2.1 L Albumin/Globulin Ratio 1.9 Current Inpatient Medications Current Inpatient Medications: Current Inpatient Medications Acetaminophen (Acetaminophen 325 Mg Tab) 650 mg PO Q4H PRN PRN Reason: Pain Stop: 06/29/24 08:30 Last Admin: 05/30/24 09:23 Dose: 650 mg Ondansetron HCl (Ondansetron Inj 2 Mg/Ml 2 Ml Vial) 4 mg IV Q6H PRN PRN Reason: Nausea And Vomiting Stop: 06/27/24 23:23 Pantoprazole Sodium (Pantoprazole 40 Mg Tab) 40 mg PO DAILY RICHIE Stop: 06/28/24 08:59 Last Admin: 05/30/24 09:23 Dose: 40 mg (1) Suicide attempt by multiple drug overdose Encounter type: initial encounter Qualified Code(s): T50.912A - Poisoning by multiple unspecified drugs, medicaments and biological substances, intentional self-harm, initial encounter
--- NOTE | 2024-05-30 16:44 | Electrocardiogram Report ---
Test Reason : Blood Pressure : */* mmHG Vent. Rate : 77 BPM Atrial Rate : 77 BPM P-R Int : 116 ms QRS Dur : 80 ms QT Int : 428 ms P-R-T Axes : 61 64 39 degrees QTcB Int : 484 ms Normal sinus rhythm Nonspecific T wave abnormality Prolonged QT Abnormal ECG When compared with ECG of 29-May-2024 13:14, No significant change Confirmed by Jesse Marie ([id number]) on 05/30/2024 4:44:00 PM Referred By: REFERRED SELF Confirmed By: Jesse Marie
--- NOTE | 2024-05-30 16:45 | Electrocardiogram Report ---
Test Reason : Blood Pressure : */* mmHG Vent. Rate : 72 BPM Atrial Rate : 72 BPM P-R Int : 92 ms QRS Dur : 78 ms QT Int : 452 ms P-R-T Axes : 27 66 42 degrees QTcB Int : 495 ms Sinus rhythm with short NV Nonspecific T wave abnormality Prolonged QT Abnormal ECG When compared with ECG of 29-May-2024 20:52, No significant change Confirmed by Jesse Marie ([id number]) on 05/30/2024 4:44:52 PM Referred By: REFERRED SELF Confirmed By: Jesse Marie
--- NOTE | 2024-05-30 22:26 | Billing Data ---
Date of Service May 30, 2024 Coding Level of Care Code 76054 SUB INP/OBS CARE MIN
--- NOTE | 2024-05-30 22:30 | Electrocardiogram Report ---
Test Reason : Blood Pressure : */* mmHG Vent. Rate : 72 BPM Atrial Rate : 72 BPM P-R Int : 112 ms QRS Dur : 84 ms QT Int : 448 ms P-R-T Axes : 0 75 68 degrees QTcB Int : 490 ms Normal sinus rhythm Nonspecific T wave abnormality Prolonged QT Abnormal ECG When compared with ECG of 30-May-2024 01:34, No significant change Confirmed by Jesse Marie ([id number]) on 05/30/2024 10:29:47 PM Referred By: REFERRED SELF Confirmed By: Jesse Marie
--- NOTE | 2024-05-31 09:32 | Hospitalist Progress Note ---
Date of Service May 31, 2024 Assessment & Plan (1) Suicide attempt by multiple drug overdose: (2) Depression with anxiety: (3) GERD (gastroesophageal reflux disease): (4) Hyperlipidemia: Plan 58yo female with depression/anxiety presenting with intentional overdose with multiple medications including with Ambien, Wellbutrin, citalopram and Alprazolam. 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 - Alprazolam, Wellbutrin, Buspirone, Citalopram -Psychiatry consultation appreciated #Prolonged QTc - initially noted on presentation, now less than 500-> likely secondary to SSRI ingestion - consider repeating EKG prior to starting any QT prolonging medications #GERD - chronic, stable -Protonix 40mg po daily while inpatient #Hyperlipidemia -Continue Crestor Ppx - Low risk for DVT-> ambulation Code - Full Dispo - Medically stable for inpatient psych placement; -Do not discharge or allow to leave AMA, would meet 302 criteria Admission and Anticipated Discharge Date Admission Date: May 28, 2024 Supervising Physician Co-Signing Physician Notes During face to face encounter, I obtained a history of current complaints and a physical examination, discussed hospital stay with patient. I discussed plan of care with PGY3 Dr. Vinson. I reviewed above note and agree with it except for the following: Patient here with intentional overdose. Discussed with psych. Patient cannot sign out against medical advice. Patient is back to baseline regardining mentation and vital signs. Patient is medically cleared for discharge. will continue 1-1 observation. Vitals appear stable. Added lorazepam to help with anxiety PRN Subjective Pt seen at bedside this morning. No events overnight. Trouble sleeping, but otherwise no complaints this morning. Review of Systems Review of Systems: As per above Physical Exam Physical Exam: Constitutional: well-appearing, no acute distress HEENT: NCAT, no conjunctival injection CV:extremities well-perfused Resp: no increased work of breathing MSK: no gross deformities appreciated Skin: warm, dry, no rash appreciated Neuro: alert, oriented, no focal neurologic deficit appreciated Results & Data Results & Data Vital Signs (Past 12 Hours) Vital Signs Temp Pulse Pulse Resp BP Pulse Ox O2 Del Method 05/31/24 09:12 36.4 C L 66 12 125/77 98 Room Air 05/31/24 08:21 65 05/30/24 23:53 61 05/30/24 23:03 36.4 C L 67 20 119/77 97 Room Air Resident Activity Tracking Resident Involvement: Resident Care Provided Care Provided: Adult Hospital Medicine (1) Suicide attempt by multiple drug overdose Encounter type: initial encounter Qualified Code(s): T50.912A - Poisoning by multiple unspecified drugs, medicaments and biological substances, intentional self-harm, initial encounter
[2024-05-31] MEDS: LORazepam 0.5 MG TAB PO PRN (16:21)
[2024-05-31 19:05] VITALS: O2SAT 96
[2024-06-01 08:16] VITALS: RESP 18; TEMP 98.1
--- NOTE | 2024-06-01 08:54 | Billing Data ---
Date of Service May 31, 2024 Coding Level of Care Code 07964 SUB INP/OBS CARE
[2024-06-01 11:48] VITALS: BP 132/83; PULSE 82
--- NOTE | 2024-06-02 06:14 | Electrocardiogram Report ---
Test Reason : Blood Pressure : */* mmHG Vent. Rate : 72 BPM Atrial Rate : 72 BPM P-R Int : 102 ms QRS Dur : 82 ms QT Int : 414 ms P-R-T Axes : 0 76 77 degrees QTcB Int : 453 ms Sinus rhythm with short NH Nonspecific T wave abnormality Abnormal ECG When compared with ECG of 30-May-2024 08:10, QT has shortened Confirmed by Jesse Marie ([id number]) on 06/02/2024 6:14:36 AM Referred By: REFERRED SELF Confirmed By: Jesse Marie
[2024-06-02 22:37] LABS: 7-Aminoclonaz, Confirm NEGATIVE ng/mL (<25); Hydro-Alp Ur, GC/MS 197 ng/mL (<25); Hydroxyethylflurazepam, Conf NEGATIVE ng/mL (<50); Hydroxymidazolam Ur, GC/MS NEGATIVE ng/mL (<50); Hydroxytriazolam NEGATIVE ng/mL (<50); Lorazepam, Ur GC/MS NEGATIVE ng/mL (<50); MDA negative; MDEA negative; MDMA (Ecstasy) Urine, Confirm negative; Nordiazepam, Confirm NEGATIVE ng/mL (<50); Oxazepam Ur, GC/MS NEGATIVE ng/mL (<50); Temazepam, Confirm NEGATIVE ng/mL (<50)
--- NOTE | 2024-06-04 08:47 | Discharge Summary ---
Discharge Summary Date of Service June 01, 2024 Principal Dx & Hospital Course #1 = Principal Diagnosis (1) Suicide attempt by multiple drug overdose: (2) Depression with anxiety: (3) GERD (gastroesophageal reflux disease): (4) Hyperlipidemia: Plan 58yo female with depression/anxiety presenting with intentional overdose with multiple medications including with Ambien, Wellbutrin, citalopram and Alprazolam. #Intentional overdose -Telemetry monitoring -Maintain aspiration precautions -Maintain suicide precautions - Initially prolonged QTc, now less than 500 - poison control signed off -One to one observation ongoing - Psychiatry consulted, appreciate recs-> plan for inpatient psych; bed search in progress -Do not discharge or allow to leave AMA, would meet 302 criteria - Pt is medically stable for inpatient pysch placement DISCHARGED ON 06/01 #Depression and anxiety -Holding home agents - Alprazolam, Wellbutrin, Buspirone, Citalopram -Psychiatry consultation appreciated #Prolonged QTc - initially noted on presentation, now less than 500-> likely secondary to SSRI ingestion - consider repeating EKG prior to starting any QT prolonging medications #GERD - chronic, stable -Protonix 40mg po daily while inpatient #Hyperlipidemia -Continue Crestor Ppx - Low risk for DVT-> ambulation Code - Full Dispo - Medically stable for inpatient psych placement; -Do not discharge or al low to leave AMA, would meet 302 criteria Admission HPI Per Admitting Provider Chica Sheets is a 58yo female presenting with intentional overdose. History obtained through chart review and discussion with ER attending - patient unable to answer questions at time of admission, no family at bedside. Patient presenting with intentional overdose, suicide attempt that occurred between 14:00 and 15:30. She took 43 tablets of Xanax 0.25mg, 10 tablets of Rizatriptan 10mg, 15-30 tablets of Ambien 5mg and an unknown amount of Bupropion. She was found by her in bed, minimally responsive with a suicide note. In the ER patient afebrile, HD stable. Poison Control contacted and recommended continued monitoring ER Course: No therapies given Discharge Exam Constitutional WD/WN, vitals as above Respiratory normal respiratory effort, lungs clear to auscultation Cardiovascular RRR, no murmur, no edema Discharge Plan Discharge Items Patient Disposition: Transfer Behavioral Health Fac Reason For Visit: INTENTIONAL OVERDOSE Discharge Diagnosis: intentional overdose Activity: Resume your previous activity Non-emergency contact: Primary Care Provider Call non-emergency contact if: you have any medication questions Follow-up/Referrals: Leti Molina MD [Primary Care Provider] - Diet: Regular Addtl Attending Provider Instructions: Transfer to inpatient psych. Recommend followup with PCP within 1-2 weeks of being cleared to go home Pending Studies at Discharge: No Stand-Alone Forms: My [facility] Medications and DC Order Prescriptions: Continued progesterone micronized 100 mg capsule 100 mg PO HS 90 Days Qty: 90 3RF tizanidine 2 mg capsule 2 mg PO Q8H PRN (Reason: muscle spasticity) Qty: 30 0RF rosuvastatin 10 mg tablet 10 mg PO QAM triamcinolone acetonide 0.1 % ointment 1 applic topical BID Qty: 15 1RF omeprazole 20 mg capsule,delayed release(DR/EC) 20 mg PO QAM cholecalciferol (vitamin D3) [Vitamin D3] 25 mcg (1,000 unit) Tablet 25 mcg PO QAM Neuriva Original 100-100 mg Capsule 1 cap PO QAM alprazolam 0.25 mg tablet 0.25 - 0.5 mg PO DAILY PRN (Reason: anxiety) Rx Instructions: 1-2 tabs PO daily PRN; estradiol 0.0375 mg/24 hr patch weekly 1 patch transdermal WK Patient Comments: takes on tuesdays Rx Instructions: 1 patch transdermally once weekly; Held buspirone 10 mg tablet 10 mg PO TID Qty: 270 1RF Hold Instructions: Provider's Order zolpidem 5 mg tablet 5 mg PO HS PRN (Reason: Sleep) Qty: 30 0RF Hold Instructions: Provider's Order bupropion HCl [Wellbutrin XL] 150 mg tablet extended release 24 hr 150 mg PO QAM Qty: 90 3RF Hold Instructions: Provider's Order rizatriptan [Maxalt] 10 mg tablet See Rx Instructions PO .COMPLEX Qty: 10 3RF Hold Instructions: Provider's Order Rx Instructions: take 1 tab at onset of headache; if no relief may repeat 1 tab after at least 2 hrs; max = 3 tabs/24 hr PO citalopram 40 mg tablet 40 mg PO DAILY Hold Instructions: Provider's Order Discharge Orders: Discharge Order (Routine); Ordered 06/01/24 Ordered By: Rodri Pedro Admission Data Admit Date/Time: 05/28/24 21:55 Attending Provider: Rodri Pedro Admit Provider: Lea Rachel Primary Care Provider: Leti Molina Other Providers: Sade Vinson; July Adkins; Jay Garnett Other Interventions: Discharge Summary Assessment (RN) Last Done: 06/01/24 11:47 Hospital Stay Data Consultations 05/28/24 21:13 ED Decision to Admit Stat 05/28/24 21:55 Consult Psychiatry Routine Pending Results Patient Have Any Pending Studies at Discharge: No Discharge Instructions Given to Patient (Per Discharging Provider) Transfer to inpatient psych. Recommend followup with PCP within 1-2 weeks of being cleared to go home Total Time Total Time Spent Total Time Spent (In Minutes): 32 Coding Level of Care Code 19963 INP/OBS DISCH >30 MIN Diagnoses Suicide attempt by multiple drug overdose [id number] Encounter type: initial encounter Depression with anxiety F41.8 GERD (gastroesophageal reflux disease) K21.9 Hyperlipidemia E78.5
== END 2024-06-01 11:48 | DRG 918 ==
LOC: ED 15:52 → SUATTDRO 21:55 → 3E 21:55 → 2N 05-29 01:55
DX: T43.8X1A Poisoning by other psychotropic drugs, accidental (unintentional), initial encounter; F41.9 Anxiety disorder, unspecified; T43.292A Poisoning by other antidepressants, intentional self-harm, initial encounter; F17.210 Nicotine dependence, cigarettes, uncomplicated; E78.5 Hyperlipidemia, unspecified; Z91.030 Bee allergy status; Z91.51 Personal history of suicidal behavior; Z56.6 Other physical and mental strain related to work; T42.4X2A Poisoning by benzodiazepines, intentional self-harm, initial encounter; F32.A Depression, unspecified; Z79.899 Other long term (current) drug therapy; Z59.86 Financial insecurity; K21.9 Gastro-esophageal reflux disease without esophagitis; Z79.890 Hormone replacement therapy; T42.6X2A Poisoning by other antiepileptic and sedative-hypnotic drugs, intentional self-harm, initial encounter